=== PATIENT | male | born 1950 | race Caucasian/White ===

== ENCOUNTER 2017-04-19 13:00 | Emergency (ER) | payer OTHER ==
[2017-04-19] MEDS ORDERED: HYDROmorphone 2 MG/ML 1 ML SYRINGE IM STA (13:38)
[2017-04-19] MEDS ORDERED: ORPHENADRINE 30 MG/ML 2 ML VIAL IM STA (13:38)
--- NOTE | 2017-04-19 14:55 | ED ---
Neck Injury/Pain HPI - General Chief Complaint: Neck Pain/Injury Stated Complaint: Neck Pain Time Seen by Provider: 04/19/17 13:23 Source: RN notes reviewed, old records reviewed Mode of arrival: wheelchair Limitations: no limitations - History of Present Illness Initial Comments: 66-year-old male presents today chief complaint of severe neck pain with range of motion. He reports he woke up with the onset of pain. He reports that he does not remember any falls or trauma to cause this. He states that he also started atorvastatin for high cholesterol 2 weeks ago. He reports that any range of motion or move his of his neck causes the pain. He denies any fever or chills or other symptoms. - Related Data Previous Rx's Medication Instructions Recorded Diazepam [Valium] 2 mg PO QID #12 tab 04/19/17 HYDROcodone/APAP 5-325MG [Anton 1 tab PO Q6HR PRN #15 tab 04/19/17 5-325] Allergies Allergy/AdvReac Type Severity Reaction Status Date / Time morphine Allergy Itching Verified 04/19/17 13:06 Review of Systems ROS Statement: Those systems with pertinent positive or pertinent negative responses have been documented in the HPI. ROS Other: All systems not noted in ROS Statement are negative. Past Medical History Past Medical History: CVA/TIA, Hyperlipidemia, Hypertension History of Any Multi-Drug Resistant Organisms: None Reported Past Surgical History: Orthopedic Surgery Additional Past Surgical History / Comment(s): left shoulder, left knee, right leg Past Psychological History: No Psychological Hx Reported Smoking Status: Current every day smoker Past Alcohol Use History: Daily Past Drug Use History: None Reported General Exam - General Exam Comments Initial Comments: This patient is a 66-year-old male. No distress. Limitations: no limitations General appearance: alert, in no apparent distress Head exam: Present: atraumatic, normocephalic, normal inspection Eye exam: Present: normal appearance, PERRL, EOMI. Absent: scleral icterus, conjunctival injection, periorbital swelling ENT exam: Present: normal exam, mucous membranes moist Neck exam: Present: normal inspection, other ( no Rashes noted. Patient does have significant pain with any range of motion of the neck. Patient has severe limit of ROM. Muscle spasm thorughout neck. ). Absent: tenderness, meningismus , full ROM, lymphadenopathy Respiratory exam: Present: normal lung sounds bilaterally. Absent: respiratory distress, wheezes, rales, rhonchi, stridor Cardiovascular Exam: Present: regular rate, normal rhythm, normal heart sounds. Absent: systolic murmur, diastolic murmur, rubs, gallop, clicks GI/Abdominal exam: Present: soft, normal bowel sounds. Absent: distended, tenderness, guarding, rebound, rigid Extremities exam: Present: normal inspection, full ROM, normal capillary refill. Absent: tenderness, pedal edema, joint swelling, calf tenderness Back exam: Present: normal inspection Neurological exam: Present: alert, oriented X3, CN II-XII intact Psychiatric exam: Present: normal affect, normal mood Skin exam: Present: warm, dry, intact, normal color. Absent: rash Course Vital Signs 04/19/17 04/19/17 13:02 16:25 Temperature 96.8 F L 98.4 F Pulse Rate 83 69 Respiratory 18 16 Rate Blood Pressure 141/84 138/78 O2 Sat by Pulse 97 97 Oximetry Medical Decision Making - Medical Decision Making This patient is a 66-year-old male with severe neck pain with range of motion for the past two days. He reports he woke up with severe spasms with in the spine of his neck and upper back. He reports that he started a tour of the [place] for cholesterol two weeks ago. Initial exam patient had virtually no ROM of neck .PAtient was given IM norflex and dilaudid. He did have some improvement , but was complaining of headache. Patient underwent CT brain and C spine without contrast. Negative for any acute abnormality. Patient case discussed with Dr. Nunes whom also examined the patient. Patient severe neck stiffness consistent with torticollis. Patient has no fever or other symptoms for concern for meningitis. Patent then received IV valiumand toradol. Patient reports some improvement of ROM. Discussed warm compresses, and to take medication as prescribed. Discussed return parameters and all questions answered. - Radiology Data Radiology results: report reviewed CT of the brain and C-spine without contrast shows no acute fracture or dislocation in the cervical spine. No acute intracranial hemorrhage or midline shift is seen. Disposition Clinical Impression: Neck muscle spasm Disposition: HOME SELF-CARE Condition: Good Instructions: Spasmodic Torticollis (ED), Muscle Spasm (ED) Additional Instructions: Patient advised to take the medications as prescribed as well as add Motrin. Return to the emergency department if any alarming signs or symptoms occur. Follow-up with PCP. Recommended discontinuing cholesterol pill until follow-up with PCP. Prescriptions: Diazepam [Valium] 2 mg PO QID #12 tab HYDROcodone/APAP 5-325MG [Anton 5-325] 1 tab PO Q6HR PRN #15 tab PRN Reason: Pain Referrals: None,Stated [Primary Care Provider] - 1-2 days Time of Disposition: 15:56
--- NOTE | 2017-04-19 15:15 | CT ---
EXAMINATION TYPE: CT brain yanine wo con DATE OF EXAM: 04/19/2017 COMPARISON: NONE HISTORY: Headache and neck pain without injury since yesterday. CT DLP: 1964 mGycm. Automated Exposure Control for Dose Reduction was Utilized. TECHNIQUE: CT scan of the head and cervical spine are performed without contrast. FINDINGS: There is no acute intracranial hemorrhage or midline shift identified. There is ventricul ar and sulcal prominence consistent with diffuse cerebral atrophy. Area of low-attenuation right jay etal occipital region is consistent with age-indeterminate infarct near axial image 41. There is mode rate mucosal thickening in the left maxillary sinus. Mild mucosal thickening inferior right maxillary sinus is noted. Visualized otherwise sinuses are clear. The globes are intact bilaterally. Cervical spine is visualized in its entirety from C1 through upper thoracic levels and demonstrates s traightened alignment without evidence of acute fracture or dislocation. Prevertebral soft tissue ap pears within normal limits. The C1-C2 articulation is within normal limits on the coronal images. Th ere is levoconvex scoliosis centered in the upper thoracic spine on coronal images. Vertebral body heights are maintained. There is moderate multilevel spurring anteriorly. Posterior sp ur disc complexes effacing anterior thecal sac C5-C6 level at level of mild disc space narrowing on s agittal image 25. Review of axial images shows no additional large disc herniation. Thyroid gland is felt within normal limits. Lung apices are clear. IMPRESSION: 1. There is no acute fracture or dislocation evident in the cervical spine. 2. No acute intracranial hemorrhage or midline shift shift is seen.
[2017-04-19] MEDS ORDERED: DIAZEPAM 5 MG/ML 2 ML INJ IVP STA (15:29)
[2017-04-19] MEDS ORDERED: KETOROLAC 30 MG/ML 1 ML VIAL IVP STA (15:29)
[2017-04-19 16:26] VITALS: BP 138/78; PULSE 69; RESP 16; TEMP 98.4
== END 2017-04-19 16:25 | disposition home or self-care (01) ==
LOC: EC 13:00
DX: M62.838 Other muscle spasm (principal); F17.200 Nicotine dependence, unspecified, uncomplicated; Z88.5 Allergy status to narcotic agent; Z98.890 Other specified postprocedural states
CPT/HCPCS: 72125; 70450; 99284; J1170; J2360; J3360; J1885

== ENCOUNTER 2018-07-02 12:41 | Emergency (ER) | payer OTHER, MEDICARE ==
[2018-07-02] MEDS ORDERED: METHOCARBAMOL 750 MG TAB PO STA (13:19)
[2018-07-02] MEDS ORDERED: KETOROLAC 30 MG/ML 1 ML VIAL IVP STA (13:19)
[2018-07-02] MEDS ORDERED: methylPREDNISolone SOD SUCCI 125 MG/2 ML VIAL IV STA (13:19)
[2018-07-02] MEDS ORDERED: LIDOCAINE 5% PATCH TOPICAL STA (13:19)
--- NOTE | 2018-07-02 13:22 | ED ---
Extremity Problem HPI - General Chief complaint: Extremity Problem,Nontraumatic Stated complaint: left shoulder pain Time Seen by Provider: 07/02/18 12:53 Source: patient, family Mode of arrival: ambulatory - History of Present Illness Initial comments: Patient is a 67-year-old male presenting for left shoulder pain. The patient states that about 7 days ago, he woke up with the left shoulder pain in his been worsening. He has tried aspirin, Tylenol, Advil also which did not help. He had some mild relief with heating pad and Facing cream. He denies any chest pain or shortness of breath and states that he has had surgery on that left shoulder with before meals joint is never hurt this bad. It he states that it feels like a pressure on the left shoulder and like someone is squeezing. He denies any infectious type symptoms such as shortness breath, fevers or chills, congestion. - Related Data Previous Rx's Medication Instructions Recorded Hydrocodone/Acetaminophen [[place] 1 tab PO Q6HR PRN #12 tab 07/02/18 7.5-325] Lidocaine 5% Patch [Lidoderm] 1 patch TOPICAL DAILY #30 patch 07/02/18 Methocarbamol [Robaxin-750] 750 mg PO TID PRN #21 tablet 07/02/18 predniSONE 50 mg PO DAILY #4 tablet 07/02/18 Allergies Allergy/AdvReac Type Severity Reaction Status Date / Time morphine Allergy Itching Verified 07/02/18 13:13 Review of Systems ROS Statement: Those systems with pertinent positive or pertinent negative responses have been documented in the HPI. Constitutional: Negative for chills, fatigue and fever. HENT: Negative for congestion. Respiratory: Negative for chest tightness, shortness of breath and wheezing. Negative for cough Cardiovascular: Negative for chest pain and palpitations. Gastrointestinal: Negative for abdominal pain. Negative for abdominal distention, diarrhea, nausea and vomiting. Genitourinary: Negative for dysuria. Musculoskeletal: Negative for back pain, neck pain and neck stiffness. Positive for left shoulder pain Skin: Negative for color change. Neurological: Negative for dizziness, speech difficulty, weakness and light- headedness. Psychiatric/Behavioral: Negative for agitation and confusion. Negative for anxiety ROS Other: All systems not noted in ROS Statement are negative. Past Medical History Past Medical History: CVA/TIA, Hyperlipidemia, Hypertension History of Any Multi-Drug Resistant Organisms: None Reported Past Surgical History: Orthopedic Surgery Additional Past Surgical History / Comment(s): left shoulder, left knee, right leg Past Psychological History: No Psychological Hx Reported Smoking Status: Current every day smoker Past Alcohol Use History: Daily Past Drug Use History: None Reported General Exam - General Exam Comments Initial Comments: Constitutional: Pt appears well-developed and well-nourished. No distress. Head: Normocephalic and atraumatic. Eyes: EOM are normal. Neck: Normal range of motion. Neck supple. Cardiovascular: Normal rate, regular rhythm, S1 normal, S2 normal and normal heart sounds. Exam reveals no gallop and no friction rub. No murmur heard. Pulmonary/Chest: Effort normal and breath sounds normal. No tachypnea and no bradypnea. No respiratory distress. No wheezes or rales noted. Abdominal: Soft. Bowel sounds are normal. Pt exhibits no shifting dullness, no distension, no pulsatile liver, no fluid wave, no abdominal bruit and no ascites. There is no rigidity, no rebound, no guarding, no tenderness at McBurney's point and negative Rojas's sign. There is no tenderness. Musculoskeletal: Normal range of motion but patient is holding left shoulder and arm and side. Mild tenderness to the left AC joint. Prior surgical scar is well-healed with no evidence of infection. Neurological: Pt is alert and oriented to person, place, and time. No cranial nerve deficit. Skin: Skin is warm and dry. No rash noted. Pt is not diaphoretic. No erythema. No pallor. Psychiatric: Pt has a normal mood and affect. Pt behavior is normal. Thought content normal. Course Vital Signs 07/02/18 07/02/18 07/02/18 12:43 14:13 15:50 Temperature 97.9 F Pulse Rate 87 73 80 Respiratory 20 18 18 Rate Blood Pressure 147/79 146/76 148/64 O2 Sat by Pulse 94 L 97 96 Oximetry 07/02/18 17:00 Temperature 98.4 F Pulse Rate 80 Respiratory 18 Rate Blood Pressure 168/88 O2 Sat by Pulse 98 Oximetry Medical Decision Making - Medical Decision Making Patient's original presentation appeared to be purely arthralgic but Because the patient did have some significant comorbidities, cardiac evaluation was performed. Laboratory studies showed that there is no significant electrolyte derangements and troponin was noted to be negative. Serial troponins were not completed as the patient's pain is been constant for 4 days. EKG had no abnormal findings and x-ray of the left shoulder was unremarkable. However because the d-dimer was elevated 0.74 CT of the chest was performed to evaluate for pulmonary embolism. CT showed no evidence of pulmonary embolism but did show mediastinal lymph nodes. Because of these findings, it was thought that the patient could be safely discharged from a cardiac standpoint. As far as the shoulders concern, patient was given analgesics and stated that pain was significantly improved.Explained all labs and diagnostic test results and that we will discharge the patient home and patient is to follow up with PCP in 1-2 days and return to the ED if symptoms worsen. Pt is agreeable to plan. - Lab Data Result diagrams: 07/02/18 13:25 07/02/18 13:25 Lab Results 07/02/18 07/02/18 07/02/18 Range/Units 13:25 13:25 13:25 WBC 5.6 (3.8-10.6) k/uL RBC 5.71 (4.30-5.90) m/uL Hgb 17.8 H (13.0-17.5) gm/dL Hct 54.4 H (39.0-53.0) % MCV 95.2 (80.0-100.0) fL MCH 31.2 (25.0-35.0) pg MCHC 32.8 (31.0-37.0) g/dL RDW 15.4 (11.5-15.5) % Plt Count 155 (150-450) k/uL Neutrophils % 52 % Lymphocytes % 37 % Monocytes % 6 % Eosinophils % 2 % Basophils % 1 % Neutrophils # 2.9 (1.3-7.7) k/uL Lymphocytes # 2.0 (1.0-4.8) k/uL Monocytes # 0.3 (0-1.0) k/uL Eosinophils # 0.1 (0-0.7) k/uL Basophils # 0.0 (0-0.2) k/uL PT 11.2 (9.0-12.0) sec INR 1.1 (<1.2) APTT 24.7 (22.0-30.0) sec D-Dimer 0.74 H (<0.60) mg/L FEU Sodium 139 (137-145) mmol/L Potassium 4.1 (3.5-5.1) mmol/L Chloride 107 (98-107) mmol/L Carbon Dioxide 26 (22-30) mmol/L Anion Gap 6 mmol/L BUN 10 (9-20) mg/dL Creatinine 0.84 (0.66-1.25) mg/dL Est GFR (CKD-EPI)AfAm >90 (>60 ml/min/1.73 sqM) Est GFR (CKD-EPI)NonAf >90 (>60 ml/min/1.73 sqM) Glucose 106 H (74-99) mg/dL Calcium 8.7 (8.4-10.2) mg/dL Magnesium 1.9 (1.6-2.3) mg/dL Total Bilirubin 1.0 (0.2-1.3) mg/dL AST 22 (17-59) U/L ALT 35 (21-72) U/L Alkaline Phosphatase 71 (38-126) U/L Troponin I (0.000-0.034) ng/mL Total Protein 7.5 (6.3-8.2) g/dL Albumin 4.3 (3.5-5.0) g/dL 07/02/18 Range/Units 13:25 WBC (3.8-10.6) k/uL RBC (4.30-5.90) m/uL Hgb (13.0-17.5) gm/dL Hct (39.0-53.0) % MCV (80.0-100.0) fL MCH (25.0-35.0) pg MCHC (31.0-37.0) g/dL RDW (11.5-15.5) % Plt Count (150-450) k/uL Neutrophils % % Lymphocytes % % Monocytes % % Eosinophils % % Basophils % % Neutrophils # (1.3-7.7) k/uL Lymphocytes # (1.0-4.8) k/uL Monocytes # (0-1.0) k/uL Eosinophils # (0-0.7) k/uL Basophils # (0-0.2) k/uL PT (9.0-12.0) sec INR (<1.2) APTT (22.0-30.0) sec D-Dimer (<0.60) mg/L FEU Sodium (137-145) mmol/L Potassium (3.5-5.1) mmol/L Chloride (98-107) mmol/L Carbon Dioxide (22-30) mmol/L Anion Gap mmol/L BUN (9-20) mg/dL Creatinine (0.66-1.25) mg/dL Est GFR (CKD-EPI)AfAm (>60 ml/min/1.73 sqM) Est GFR (CKD-EPI)NonAf (>60 ml/min/1.73 sqM) Glucose (74-99) mg/dL Calcium (8.4-10.2) mg/dL Magnesium (1.6-2.3) mg/dL Total Bilirubin (0.2-1.3) mg/dL AST (17-59) U/L ALT (21-72) U/L Alkaline Phosphatase (38-126) U/L Troponin I <0.012 (0.000-0.034) ng/mL Total Protein (6.3-8.2) g/dL Albumin (3.5-5.0) g/dL - EKG Data EKG Comments: EKG shows normal sinus rhythm with a rate of 80 bpm, ME interval 182, QRS 88, QTC 461. There are no significant ST depressions or elevations. Disposition Clinical Impression: Pulmonary nodules, Left shoulder pain Disposition: HOME SELF-CARE Condition: Good Instructions (If sedation given, give patient instructions): Shoulder Pain (ED) Prescriptions: Lidocaine 5% Patch [Lidoderm] 1 patch TOPICAL DAILY #30 patch Hydrocodone/Acetaminophen [[place] 7.5-325] 1 tab PO Q6HR PRN #12 tab PRN Reason: Pain predniSONE 50 mg PO DAILY #4 tablet Methocarbamol [Robaxin-750] 750 mg PO TID PRN #21 tablet PRN Reason: Pain Is patient prescribed a controlled substance at d/c from ED?: No Referrals: None,Stated [Primary Care Provider] - 1-2 days Time of Disposition: 16:35
[2018-07-02 13:37] LABS: Basophils % (A) 1 %; Eosinophils # (A) 0.1 k/uL (0-0.7); Eosinophils % (A) 2 %; HCT 54.4 % (39.0-53.0); HGB 17.8 gm/dL (13.0-17.5); Lymphocytes % (A) 37 %; MCH 31.2 pg (25.0-35.0); MCHC 32.8 g/dL (31.0-37.0); MCV 95.2 fL (80.0-100.0); Mean Platelet Volume 7.6; Monocytes # (A) 0.3 k/uL (0-1.0); Monocytes % (A) 6 %; Neutrophils # (A) 2.9 k/uL (1.3-7.7); Neutrophils % (A) 52 %; Platelet Count 155 k/uL (150-450); RBC 5.71 m/uL (4.30-5.90); RDW 15.4 % (11.5-15.5); WBC 5.6 k/uL (3.8-10.6)
[2018-07-02 13:45] LABS: ALT 35 U/L (21-72); AST 22 U/L (17-59); Albumin 4.3 g/dL (3.5-5.0); Alkaline Phosphatase 71 U/L (38-126); Anion Gap 6 mmol/L; Blood Urea Nitrogen 10 mg/dL (9-20); Calcium 8.7 mg/dL (8.4-10.2); Carbon Dioxide 26 mmol/L (22-30); Chloride 107 mmol/L (98-107); Glucose 106 mg/dL (74-99); Magnesium 1.9 mg/dL (1.6-2.3); Potassium 4.1 mmol/L (3.5-5.1); Sodium 139 mmol/L (137-145); Total Protein 7.5 g/dL (6.3-8.2)
[2018-07-02 13:55] LABS: INR 1.1 (<1.2); Partial Thromboplastin Time 24.7 sec (22.0-30.0); Prothrombin Time 11.2 sec (9.0-12.0)
[2018-07-02 14:07] LABS: D-Dimer 0.74 mg/L FEU (<0.60)
[2018-07-02 14:14] VITALS: RESP 18
--- NOTE | 2018-07-02 14:14 | XR ---
EXAMINATION TYPE: XR shoulder complete LT DATE OF EXAM: 07/02/2018 COMPARISON: NONE HISTORY: Shoulder pain TECHNIQUE: 4 views FINDINGS: I see no fracture nor dislocation. Glenohumeral joint is intact. There are no pathologic ca lcifications. IMPRESSION: Negative left shoulder exam.
--- NOTE | 2018-07-02 14:15 | XR ---
EXAMINATION TYPE: XR chest 2V DATE OF EXAM: 07/02/2018 COMPARISON: NONE HISTORY: Shoulder pain TECHNIQUE: Frontal and lateral views of the chest are obtained. FINDINGS: 2 views There is no heart failure nor confluent pneumonic infiltrate. There is coarsening of the lung markin gs at the lung bases. Bony thorax is intact. IMPRESSION: Pulmonary fibrotic changes. Normal heart.
--- NOTE | 2018-07-02 15:47 | CT ---
EXAMINATION TYPE: CT angio chest DATE OF EXAM: 07/02/2018 3:14 PM COMPARISON: None HISTORY: chest pain radiating into left shoulder CT DLP: 783.1 mGycm Automated exposure control for dose reduction was used. CONTRAST: CTA scan of the thorax is performed with IV Contrast, patient injected with 87cc mL of Isovue 370, pu lmonary embolism protocol. There are 3-D post processed images.. FINDINGS: There is mild subpleural reticular infiltrate in both lungs consistent with pulmonary fibrosis. There is no pleural effusion. There is no evidence of a pulmonary mass. There are a few mediastinal lymph nodes that measure up to 1.5 cm. There are no hilar masses. There is normal contrast opacification of the pulmonary arteries. There are no filling defects. Heart size is normal. There is no pericardial effusion. Thoracic aorta is intact without evidence of aneur ysm or dissection. There are small calcified gallstones. The bony thorax is intact. There is no compression fracture in the thoracic spine. IMPRESSION: NO EVIDENCE OF PULMONARY EMBOLISM. NONSPECIFIC SMALL MEDIASTINAL LYMPH NODES THE DISKS PROBABLY OF NO SIGNIFICANCE. MILD PULMONARY INTERSTITIAL FIBROSIS.
[2018-07-02 15:51] VITALS: PULSE 80
[2018-07-02 17:06] VITALS: BP 168/88; TEMP 98.4
== END 2018-07-02 17:00 | disposition home or self-care (01) ==
LOC: EC 12:41
DX: M25.512 Pain in left shoulder (principal); R91.8 Other nonspecific abnormal finding of lung field; F17.200 Nicotine dependence, unspecified, uncomplicated; Z88.5 Allergy status to narcotic agent; Z86.73 Personal history of transient ischemic attack (TIA), and cerebral infarction without residual deficits
CPT/HCPCS: 36415; 93005; 85379; 80053; 83735; 84484; 85025; 85610; 85730; 73030; 71046; 71275; 99284; 96374; 96375; J2930; J1885; Q9967

== ENCOUNTER 2018-11-22 22:00 | Emergency (ER) | payer OTHER, MEDICARE ==
[2018-11-22 22:11] VITALS: TEMP 98.2
[2018-11-22] MEDS ORDERED: SODIUM CHLORIDE 0.9% 1,000 ML IV STA (23:20)
--- NOTE | 2018-11-22 23:51 | XR ---
EXAM: XR Chest, 2 Views CLINICAL HISTORY: Chest Pain TECHNIQUE: Frontal and lateral views of the chest. COMPARISON: 07/02/2018 FINDINGS: Lungs: Unremarkable. No consolidation. Pleural space: Unremarkable. No pneumothorax. Heart: Stable cardiomediastinal silhouette. Mediastinum: See above. Bones/joints: No acute osseous abnormality. Other findings: Similar small round radiodensity in the medial right anterior chest wall. IMPRESSION: No acute cardiopulmonary process.
[2018-11-23 00:05] LABS: Anisocytosis Slight; Basophils % (A) 1 %; Eosinophils # (A) 0.1 k/uL (0-0.7); Eosinophils % (A) 2 %; HCT 46.8 % (39.0-53.0); HGB 16.3 gm/dL (13.0-17.5); Lymphocytes # (A) 3.2 k/uL (1.0-4.8); Lymphocytes % (A) 46 %; MCH 36.2 pg (25.0-35.0); MCHC 34.8 g/dL (31.0-37.0); Macrocytosis Moderate; Mean Platelet Volume 7.3; Monocytes # (A) 0.3 k/uL (0-1.0); Monocytes % (A) 5 %; Neutrophils # (A) 3.1 k/uL (1.3-7.7); Neutrophils % (A) 45 %; Platelet Count 138 k/uL (150-450); RBC 4.51 m/uL (4.30-5.90); RDW 17.3 % (11.5-15.5)
[2018-11-23 00:17] LABS: African American GFR (CKD) >90 (>60 ml/min/1.73 sqM); Albumin 3.6 g/dL (3.5-5.0); Blood Urea Nitrogen 7 mg/dL (9-20); Calcium 8.1 mg/dL (8.4-10.2); Chloride 103 mmol/L (98-107); Total Protein 6.8 g/dL (6.3-8.2)
[2018-11-23 00:27] LABS: INR 1.1 (<1.2); Partial Thromboplastin Time 23.8 sec (22.0-30.0); Prothrombin Time 11.6 sec (9.0-12.0)
[2018-11-23 00:28] LABS: ALT 69 U/L (21-72); AST 60 U/L (17-59); Alkaline Phosphatase 96 U/L (38-126); Amylase <30 U/L (30-110); Anion Gap 9 mmol/L; Carbon Dioxide 30 mmol/L (22-30); Glucose 107 mg/dL (74-99); Potassium 3.4 mmol/L (3.5-5.1); Sodium 142 mmol/L (137-145); Total Bilirubin 0.6 mg/dL (0.2-1.3)
[2018-11-23 00:31] LABS: Alcohol 221 mg/dL
[2018-11-23] MEDS ORDERED: POTASSIUM CHLORIDE ER 20 MEQ TAB.ER PO STA (00:51)
--- NOTE | 2018-11-23 00:55 | ED ---
General Adult HPI - General Chief complaint: Extremity Problem,Nontraumatic Stated complaint: Swollen Feet, Speech Issues Time Seen by Provider: 11/22/18 22:47 Source: family Mode of arrival: ambulatory - History of Present Illness Initial comments: 68-year-old male patient with past medical history significant for CVA and hypertension presents to the emergency department today for evaluation of edema to the lower extremities and not feeling "right". Patient states that he has noticed a swollen feet for the last couple of weeks. States this started with a left leg. 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 States he has been sleeping a lot over the weekend. He denies any headache, blurred vision, double vision, numbness, or tingling to his extremities. Denies any chest pain, shortness of breath, cough, sore throat, or ear pain. Denies abdominal pain, nausea, or vomiting. Patient does admit to smoking cigarettes and drinking alcohol on a daily basis. Patient denies any recent rash, fever, chills, diarrhea, constipation, back pain, dizziness, weakness, hematuria, dysuria, urinary u rgency, urinary frequency, or any other complaints. - Related Data Home Medications Medication Instructions Recorded Confirmed Aspirin 81 mg PO HS 11/22/18 11/22/18 Lisinopril 20 mg PO HS 11/22/18 11/22/18 amLODIPine [Norvasc] 10 mg PO HS 11/22/18 11/22/18 Allergies Allergy/AdvReac Type Severity Reaction Status Date / Time morphine Allergy Itching Verified 11/22/18 22:47 Review of Systems ROS Statement: Those systems with pertinent positive or pertinent negative responses have been documented in the HPI. ROS Other: All systems not noted in ROS Statement are negative. Past Medical History Past Medical History: CVA/TIA, Hyperlipidemia, Hypertension History of Any Multi-Drug Resistant Organisms: None Reported Past Surgical History: Orthopedic Surgery Additional Past Surgical History / Comment(s): left shoulder, left knee, right leg Past Psychological History: No Psychological Hx Reported Smoking Status: Current every day smoker Past Alcohol Use History: Daily Past Drug Use History: None Reported General Exam General appearance: alert, in no apparent distress, other (This is a well-deve loped, well-nourished adult male patient in no acute distress. Vital signs upon presentation are temperature 98.2F, pulse 94, respirations 20, blood pressure 123/95, pulse ox 98% on room air.) Eye exam: Present: normal appearance, PERRL, EOMI. Absent: scleral icterus, con junctival injection, periorbital swelling ENT exam: Present: normal exam, normal oropharynx, mucous membranes moist Respiratory exam: Present: normal lung sounds bilaterally. Absent: respiratory distress, wheezes, rales, rhonchi, stridor Cardiovascular Exam: Present: regular rate, normal rhythm, normal heart sounds. Absent: systolic murmur, diastolic murmur, rubs, gallop, clicks GI/Abdominal exam: Present: soft, normal bowel sounds. Absent: distended, tenderness, guarding, rebound, rigid Extremities exam: Present: full ROM, normal capillary refill, other (Bilateral lower extremity edema including the ankles and feet. One plus pitting. Skin is otherwise pink, warm, dry. Cap refills less than 3 seconds. Pedal and posttibial pulses are 2+ and equal bilaterally.). Absent: normal inspection, tenderness, pedal edema, joint swelling, calf tenderness Neurological exam: Present: alert, oriented X3, CN II-XII intact Psychiatric exam: Present: normal affect, normal mood Skin exam: Present: warm, dry, intact, normal color. Absent: rash Course Vital Signs 11/22/18 11/23/18 22:07 02:13 Temperature 98.2 F 98.2 F Pulse Rate 94 85 Respiratory 20 18 Rate Blood Pressure 123/95 138/74 O2 Sat by Pulse 98 96 Oximetry EKG Findings - EKG Comments: EKG Findings:: EKG obtained at 2359 shows sinus rhythm with premature supraventricular complexes. Ventricular rate is 79, OK interval 174, QRS duration 90, QT 404, QTC 463. No evidence of ST elevation or depression. Medical Decision Making - Medical Decision Making 68-year-old male patient presents to the emergency department today for evaluation of not feeling "right" and lower extremity edema. Physical examination did reveal 1-2+ pitting edema to the bilateral ankles and feet. Labs reviewed and did reveal elevated alcohol at 221. Venous doppler of the left lower extremity was negative. Chest xray showed no acute cardiopulmonary process. I did discuss the results and findings with the patient. He is given MARIELENA hose for leg swelling. He is instructed to keep his legs elevated. He is instructed to follow-up with his primary care physician for recheck in 1-2 days. Return parameters were discussed in detail. He verbalizes understanding and agrees this plan. - Lab Data Result diagrams: 11/22/18 23:45 11/22/18 23:45 Lab Results 11/22/18 11/22/18 11/22/18 Range/Units 23:45 23:45 23:45 WBC 7.0 (3.8-10.6) k/uL RBC 4.51 (4.30-5.90) m/uL Hgb 16.3 (13.0-17.5) gm/dL Hct 46.8 (39.0-53.0) % MCV 104.0 H (80.0-100.0) fL MCH 36.2 H (25.0-35.0) pg MCHC 34.8 (31.0-37.0) g/dL RDW 17.3 H (11.5-15.5) % Plt Count 138 L (150-450) k/uL Neutrophils % 45 % Lymphocytes % 46 % Monocytes % 5 % Eosinophils % 2 % Basophils % 1 % Neutrophils # 3.1 (1.3-7.7) k/uL Lymphocytes # 3.2 (1.0-4.8) k/uL Monocytes # 0.3 (0-1.0) k/uL Eosinophils # 0.1 (0-0.7) k/uL Basophils # 0.0 (0-0.2) k/uL Anisocytosis Slight Macrocytosis Moderate PT (9.0-12.0) sec INR (<1.2) APTT (22.0-30.0) sec Sodium 142 (137-145) mmol/L Potassium 3.4 L (3.5-5.1) mmol/L Chloride 103 (98-107) mmol/L Carbon Dioxide 30 (22-30) mmol/L Anion Gap 9 mmol/L BUN 7 L (9-20) mg/dL Creatinine 0.94 (0.66-1.25) mg/dL Est GFR (CKD-EPI)AfAm >90 (>60 ml/min/1.73 sqM) Est GFR (CKD-EPI)NonAf 83 (>60 ml/min/1.73 sqM) Glucose 107 H (74-99) mg/dL Calcium 8.1 L (8.4-10.2) mg/dL Magnesium 2.0 (1.6-2.3) mg/dL Total Bilirubin 0.6 (0.2-1.3) mg/dL AST 60 H (17-59) U/L ALT 69 (21-72) U/L Alkaline Phosphatase 96 (38-126) U/L Troponin I (0.000-0.034) ng/mL NT-Pro-B Natriuret Pep 115 pg/mL Total Protein 6.8 (6.3-8.2) g/dL Albumin 3.6 (3.5-5.0) g/dL Amylase <30 L (30-110) U/L Lipase 79 (23-300) U/L Serum Alcohol 221 H* mg/dL 11/22/18 11/22/18 Range/Units 23:45 23:45 WBC (3.8-10.6) k/uL RBC (4.30-5.90) m/uL Hgb (13.0-17.5) gm/dL Hct (39.0-53.0) % MCV (80.0-100.0) fL MCH (25.0-35.0) pg MCHC (31.0-37.0) g/dL RDW (11.5-15.5) % Plt Count (150-450) k/uL Neutrophils % % Lymphocytes % % Monocytes % % Eosinophils % % Basophils % % Neutrophils # (1.3-7.7) k/uL Lymphocytes # (1.0-4.8) k/uL Monocytes # (0-1.0) k/uL Eosinophils # (0-0.7) k/uL Basophils # (0-0.2) k/uL Anisocytosis Macrocytosis PT 11.6 (9.0-12.0) sec INR 1.1 (<1.2) APTT 23.8 (22.0-30.0) sec Sodium (137-145) mmol/L Potassium (3.5-5.1) mmol/L Chloride (98-107) mmol/L Carbon Dioxide (22-30) mmol/L Anion Gap mmol/L BUN (9-20) mg/dL Creatinine (0.66-1.25) mg/dL Est GFR (CKD-EPI)AfAm (>60 ml/min/1.73 sqM) Est GFR (CKD-EPI)NonAf (>60 ml/min/1.73 sqM) Glucose (74-99) mg/dL Calcium (8.4-10.2) mg/dL Magnesium (1.6-2.3) mg/dL Total Bilirubin (0.2-1.3) mg/dL AST (17-59) U/L ALT (21-72) U/L Alkaline Phosphatase (38-126) U/L Troponin I <0.012 (0.000-0.034) ng/mL NT-Pro-B Natriuret Pep pg/mL Total Protein (6.3-8.2) g/dL Albumin (3.5-5.0) g/dL Amylase (30-110) U/L Lipase (23-300) U/L Serum Alcohol mg/dL - Radiology Data Radiology results: report reviewed, image reviewed Two-view x-ray of the chest was obtained. Report was reviewed in its entirety. Impression by Dr. Cobb shows no acute cardiopulmonary process. US venous doppler duplex was obtained. No DVT as reported by Dr. Cobb. Disposition Clinical Impression: Lower extremity edema, Fatigue Disposition: HOME SELF-CARE Condition: Good Instructions (If sedation given, give patient instructions): Fatigue (ED), Edema (ED) Additional Instructions: Follow-up with your primary care physician for recheck as soon as possible. Wear MARIELENA Hose, take off at night while sleeping. Keep legs elevated as much as possible. Return to the emergency department immediately for any new, worsening, or concerning symptoms Is patient prescribed a controlled substance at d/c from ED?: No Referrals: [facility] [Primary Care Provider] - 1-2 days Time of Disposition: 01:21
--- NOTE | 2018-11-23 00:56 | US ---
EXAM: US Duplex Left Lower Extremity Veins CLINICAL HISTORY: Pain TECHNIQUE: Real-time duplex ultrasound scan of the left lower extremity veins integrating B-mode two-dimensional vascular structure, Doppler spectral analysis, color flow Doppler imaging and compression. COMPARISON: No relevant prior studies available. FINDINGS: Deep veins: Unremarkable. Normal compression. There is normal response to augmentation. Superficial veins: Unremarkable as visualized. Soft tissues: No acute findings. IMPRESSION: No evidence of DVT in veins imaged from prox calf veins to EIV. Technical limitations due to body habitus and swelling.
[2018-11-23 02:15] VITALS: BP 138/74; PULSE 85; RESP 18
== END 2018-11-23 02:13 | disposition home or self-care (01) ==
LOC: EC 22:00
DX: R60.0 Localized edema (principal); R53.83 Other fatigue; R47.89 Other speech disturbances; I10 Essential (primary) hypertension; F17.210 Nicotine dependence, cigarettes, uncomplicated; Z86.73 Personal history of transient ischemic attack (TIA), and cerebral infarction without residual deficits; Z79.82 Long term (current) use of aspirin; Z79.899 Other long term (current) drug therapy; Z88.5 Allergy status to narcotic agent
CPT/HCPCS: 36415; 71046; 80053; 80320; 82150; 83690; 83735; 83880; 84484; 85025; 85610; 85730; 93005; 96360; 99285